=== PATIENT | female | born 1970 | race Caucasian/White ===

== ENCOUNTER → 2021-06-28 | Outpatient (CLI) | payer OTHER ==
[~2021-06-28] MED LIST: FUROSEMIDE INJ 10 MG/ML 4 ML VIAL ONE
== END ==
LOC: NM 08:49
PROVIDERS: ATTEND Urology
DX: N13.30 Unspecified hydronephrosis (principal)
CPT/HCPCS: 78708; A9562; J1940

== ENCOUNTER → 2022-09-26 | Outpatient (CLI) | payer OTHER | LOC: CT 16:10 | PROVIDERS: ATTEND Family Medicine | DX: S29.019D Strain of muscle and tendon of unspecified wall of thorax, subsequent encounter (principal); Y99.0 Civilian activity done for income or pay | CPT/HCPCS: 72128; 72131 ==